=== PATIENT | female | born 1990 | race Caucasian/White ===

== ENCOUNTER 2024-05-10 13:05 | Inpatient (IN) | payer BC, SELFPAY ==
[2024-05-10 13:15] VITALS: BP 112/84; BMI 27.5
[2024-05-10 14:08] LABS: % Basophils 0.4 % (0-2); % Eosinophils 0.9 % (0-6); % Immature Granulocytes 1.2 % (0-0.5); % Lymphocytes 14.7 % (20.5-51.1); % Monocytes 8.9 % (1.7-9.3); % Neutrophils 73.9 % (42.2-75.2); Absolute Eosinophils 0.1 10^3/uL (0-0.7); Absolute Immature Granulocytes 0.1 10^3/uL (0-0.05); Absolute Lymphocytes 1.6 10^3/uL (1.2-3.4); Hematocrit 43.8 % (37.0-47.0); Hemoglobin 14.6 g/dL (12.0-16.0); Mean Corp Hgb Conc. 33.3 g/dL (33.0-37.0); Mean Corpuscular Hgb 31.7 pg (27.0-31.0); Mean Platelet Volume 11.9 fL (7.4-10.4); Nucleated Red Blood Cells % 0 %; Platelet Count 124 10^3/uL (130-400); Red Blood Cell Count 4.61 10^6/uL (4.20-5.40); Red Cell Dist. Width 12.8 % (11.5-14.5); White Blood Cell Count 10.8 10^3/uL (4.8-10.8)
[2024-05-10] MEDS: FENTANYL/BUPIVACAINE 100 EPIDURAL (23:04)
[2024-05-10] MEDS: SUBLIMAZE 100 MCG EPIDURAL (23:04)
[2024-05-10] MEDS: LR 1000 IV (23:44)
[2024-05-11] MEDS: FENTANYL/BUPIVACAINE 100 EPIDURAL (06:51)
[2024-05-11] MEDS: SENOKOT-S 1 TABLET PO (09:47)
[2024-05-11] MEDS: MOTRIN 600 MG PO ×3 (09:47→22:45)
[2024-05-11] MEDS: TYLENOL 650 MG PO (22:44)
[2024-05-12] MEDS: TYLENOL 650 MG PO ×3 (04:42→23:38)
[2024-05-12] MEDS: MOTRIN 600 MG PO ×4 (04:42→23:38)
[2024-05-12] MEDS: SYNTHROID 75 MCG PO (05:33)
[2024-05-12 05:36] LABS: Hematocrit 37.1 % (37.0-47.0); Hemoglobin 12.1 g/dL (12.0-16.0)
[2024-05-12] MEDS: PRENATAL PLUS 1 TABLET PO (10:42)
[2024-05-12] MEDS: SENOKOT-S 1 TABLET PO (10:42)
[2024-05-13] MEDS: SYNTHROID 75 MCG PO (05:40)
[2024-05-13] MEDS: TYLENOL 650 MG PO (05:40)
[2024-05-13] MEDS: MOTRIN 600 MG PO (05:41)
[2024-05-13] MEDS: PRENATAL PLUS 1 TABLET PO (08:51)
[2024-05-13] MEDS: SENOKOT-S 1 TABLET PO (08:51)
[2024-05-15 11:18] LABS: Syphilis/T. pallidum Ab Reflex Negative (Negative)
== END 2024-05-13 12:29 | disposition home or self-care (01) | DRG 807 ==
LOC: LDRP 13:05
PROVIDERS: ADMITTING PHYSICIAN Obstetrics & Gynecology
PROC: 10E0XZZ Delivery of Products of Conception, External Approach (ICD-10-PCS; 2024-05-11)
PROC: 0KQM0ZZ Repair Perineum Muscle, Open Approach (ICD-10-PCS; 2024-05-11)
DX: O99.12 Other diseases of the blood and blood-forming organs and certain disorders involving the immune mechanism complicating childbirth (principal); Z37.0 Single live birth; D69.6 Thrombocytopenia, unspecified; O70.1 Second degree perineal laceration during delivery; Z3A.38 38 weeks gestation of pregnancy; O34.211 Maternal care for low transverse scar from previous cesarean delivery; N85.8 Other specified noninflammatory disorders of uterus; O69.81X0 Labor and delivery complicated by cord around neck, without compression, not applicable or unspecified
CPT/HCPCS: 36415; 59025; 85014; 85018; 85025; 86780; 86850; 86900; 86901

== ENCOUNTER → 2025-04-06 13:56 | Outpatient (REF) | payer BC, SELFPAY | LOC: RAD 13:56 | PROVIDERS: ATTENDING PHYSICIAN Nurse Practitioner Adult Health | DX: M25.562 Pain in left knee (principal) | CPT/HCPCS: 73564 ==